=== PATIENT | male | born 1980 | race Caucasian/White ===

== ENCOUNTER 2021-05-31 14:04 | Outpatient (CLI) | payer BC | END 2021-05-31 14:05 | disposition home or self-care (01) | LOC: SCSRAD 14:04 | PROVIDERS: ATTEND Family Medicine | DX: U07.1 COVID-19 (principal); J12.82 Pneumonia due to coronavirus disease 2019 | CPT/HCPCS: 71046 ==

== ENCOUNTER 2021-06-22 07:56 | Outpatient (CLI) | payer BC | END 2021-06-22 07:57 | disposition home or self-care (01) | LOC: SCSRAD 07:56 | PROVIDERS: ATTEND Family Medicine | DX: U07.1 COVID-19 (principal); J12.82 Pneumonia due to coronavirus disease 2019 | CPT/HCPCS: 71046 ==